=== PATIENT | female | born 1990 | race Caucasian/White ===

== ENCOUNTER 2017-09-13 16:12 | Emergency (ER) | payer MEDICAID ==
--- NOTE | 2017-09-13 16:29 | EDM.PDOC ---
ED HPI GENERAL MEDICAL PROBLEM - General Chief Complaint: Upper Extremity Injury/Pain Stated Complaint: LEFT ELBOW Time Seen by Provider: 09/13/17 16:20 Source of Information: Reports: Patient History Limitations: Reports: No Limitations - History of Present Illness INITIAL COMMENTS - FREE TEXT/NARRATIVE: c/o fall on ice walking dog this AM, dog ran, pt holding leash, pulled to sidewalk, pain in L elbow in antecubital fossa and olecranon, no medial/lateral tender R handed has 3 children, 1 yo at home, 3 others live with GM not working outside house took 3 OTC pain pills at home, not sure whether APAP or ibuprofen - Related Data Allergies Allergy/AdvReac Type Severity Reaction Status Date / Time No Known Allergies Allergy Verified 09/13/17 16:20 Home Meds: Home Meds NK [No Known Home Meds] 09/13/17 [History] Past Medical History - Past Health History Medical/Surgical History: Denies 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: Neurological History: Reports: Migraines Psychiatric History: Reports: Anxiety - Infectious Disease History Infectious Disease History: Reports: Chicken Pox - Past Surgical History HEENT Surgical History: Reports: Tonsillectomy Social & Family History - Family History Family Medical History: Noncontributory - Tobacco Use Smoking Status *Q: Current Every Day Smoker Years of Tobacco use: 15 Packs/Tins Daily: 0.5 Used Tobacco, but Quit: No Second Hand Smoke Exposure: Yes - Caffeine Use Caffeine Use: Reports: Coffee, Energy Drinks, Soda - Recreational Drug Use Recreational Drug Use: No Review of Systems - Review of Systems Review Of Systems: See Below Constitutional: Reports: No Symptoms Eyes: Reports: No Symptoms Ears: Reports: No Symptoms Nose: Reports: No Symptoms Mouth/Throat: Reports: No Symptoms Respiratory: Reports: No Symptoms Cardiovascular: Reports: No Symptoms GI/Abdominal: Reports: No Symptoms Genitourinary: Reports: No Symptoms Musculoskeletal: Reports: Other (L elbow, denies pain elsewhere) Skin: Reports: No Symptoms Neurological: Reports: No Symptoms Psychiatric: Reports: No Symptoms ED EXAM, GENERAL - Physical Exam Exam: See Below Exam Limited By: No Limitations General Appearance: Alert, WD/WN, Mild Distress Extremities: Other (holding L elbow flexed on pillow, allows extension to 180 degrees and flexion to 35 degrees, no ecchymosis, NT at epicondyles and radial head, slight tender at olecranon) Course - Vital Signs Last Recorded V/S: Last Vital Signs Temp 36.1 C 09/13/17 16:22 Pulse 79 09/13/17 16:22 Resp 16 09/13/17 16:22 BP 120/71 09/13/17 16:22 Pulse Ox 100 09/13/17 16:22 - Orders/Labs/Meds Orders: Active Orders 24 hr Category Date Time Status Elbow Min 3V Lt [CR] Stat Exams 09/13/17 16:21 Ordered - Re-Assessments/Exams Free Text/Narrative Re-Assessment/Exam: 09/13/17 16:46 XR neg, need for f/u exam and possible repeat XRs discussed, will try x-ray Departure - Departure Time of Disposition: 16:47 Disposition: Home, Self-Care 01 Condition: Good Clinical Impression: Left elbow contusion - Discharge Information Instructions: Elbow Contusion Referrals: Clayton Chaparro MD [Primary Care Provider] - Forms: ED Department Discharge Additional Instructions: For pain and inflammation and swelling, take ibuprofen 200 mg 3 tabs and acetaminophen 325 mg 2 tabs 4 times a day for 3 days, longer if needed. Use ice for 10 minutes 4 times a day for 2 days. Use Shaan wrap. Limit use of elbow until it feels better. See your doctor in 2-3 days. In some cases of elbow injuries, repeat x-rays are needed. Call your Physician or Return to Emergency Department if: * Your condition worsens in any way. * You develop fever greater than 100.4. * You have vomitting that does not stop with medications. * You have pain that is not controlled with medications. - My Orders Last 24 Hours: My Active Orders 09/13/17 16:21 Elbow Min 3V Lt [CR] Stat - Assessment/Plan Last 24 Hours: My Active Orders 09/13/17 16:21 Elbow Min 3V Lt [CR] Stat
[2017-09-13 16:31] VITALS: BP 120/71
--- NOTE | 2017-09-14 11:35 | CR ---
INDICATION: Fall, pain. LEFT ELBOW: Three views of the left elbow were obtained and revealed no evidence of an acute fracture, dislocation, or other significant bone or joint abnormality. IMPRESSION: Normal left elbow. MTDD
== END 2017-09-13 16:50 | disposition home or self-care (01) ==
LOC: FB.ED 16:12
DX: S50.02XA Contusion of left elbow, initial encounter (principal); F17.210 Nicotine dependence, cigarettes, uncomplicated; W00.0XXA Fall on same level due to ice and snow, initial encounter; Y93.K1 Activity, walking an animal
CPT/HCPCS: 73080-LT; 99283

== ENCOUNTER 2019-04-14 19:58 | Emergency (ER) | payer MEDICAID, OTHER ==
[2019-04-14] MEDS ORDERED: Ketorolac 60 MG/2 ML SDV IM ONE (22:50)
[2019-04-15 01:16] VITALS: BP 131/75; PULSE 85
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
== END 2019-04-15 01:30 | disposition home or self-care (01) ==
LOC: FB.ED 19:58
DX: S16.1XXA Strain of muscle, fascia and tendon at neck level, initial encounter (principal); F17.210 Nicotine dependence, cigarettes, uncomplicated; W22.8XXA Striking against or struck by other objects, initial encounter
CPT/HCPCS: 72050; 96372; 99283; J1885

== ENCOUNTER 2019-11-16 14:25 | Emergency (ER) | payer SELFPAY ==
[2019-11-16 14:44] VITALS: BP 99/52; PULSE 130
[2019-11-16] MEDS ORDERED: Ketorolac 60 MG/2 ML SDV IM ONE (14:48)
[2019-11-16] MEDS ORDERED: Cyclobenzaprine 10 MG Tab PO ONE (14:48)
[2019-11-16] MEDS ORDERED: predniSONE 20 MG Tab PO STA (14:48)
--- NOTE | 2019-11-16 14:50 | EDM.PDOC ---
ED HPI GENERAL MEDICAL PROBLEM - General Chief Complaint: Back Pain or Injury Stated Complaint: BACK PAIN Time Seen by Provider: 11/16/19 14:40 Source of Information: Reports: Patient, Family History Limitations: Reports: No Limitations - History of Present Illness INITIAL COMMENTS - FREE TEXT/NARRATIVE: sudden onset of right side paraspinal low back pain since 3am , non radiaiting , no numbness ortingling down the legs no leg or back inury noted in recent past lower back Pain Score (Numeric/FACES): 5 - Related Data Allergies Allergy/AdvReac Type Severity Reaction Status Date / Time No Known Allergies Allergy Verified 11/16/19 14:42 Home Meds: Home Meds Cyclobenzaprine [Flexeril] 10 mg PO TID PRN #30 tab 11/16/19 [Rx] Ketorolac [Toradol] 10 mg PO Q6H PRN #15 tab 11/16/19 [Rx] Sulfamethoxazole/Trimethoprim [Bactrim Ds Tablet] 1 each PO BID #10 tablet 11/16 [Rx] Past Medical History - Past Health History Medical/Surgical History: Denies 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: Neurological History: Reports: Migraines Psychiatric History: Reports: Anxiety - Infectious Disease History Infectious Disease History: Reports: Chicken Pox - Past Surgical History HEENT Surgical History: Reports: Tonsillectomy Social & Family History - Family History Family Medical History: Noncontributory - Caffeine Use Caffeine Use: Reports: Coffee, Energy Drinks, Soda, Tea - Living Situation & Occupation Living situation: Reports: ED ROS GENERAL - Review of Systems Review Of Systems: See Below Constitutional: Reports: No Symptoms HEENT: Reports: No Symptoms Respiratory: Reports: No Symptoms Cardiovascular: Reports: No Symptoms Endocrine: Reports: No Symptoms Musculoskeletal: Reports: No Symptoms, Back Pain, Muscle Pain Skin: Reports: No Symptoms Neurological: Reports: No Symptoms Psychiatric: Reports: No Symptoms Hematologic/Lymphatic: Reports: No Symptoms Immunologic: Reports: No Symptoms ED EXAM,LOWER BACK PAIN/INJURY - Physical Exam Exam: See Below Exam Limited By: No Limitations General Appearance: Alert, WD/WN, Mild Distress Ears: Normal External Exam Throat/Mouth: Normal Inspection Head: Atraumatic Neck: Supple, Non-Tender Respiratory/Chest: No Respiratory Distress, Lungs Clear, Normal Breath Sounds Cardiovascular: Regular Rate, Rhythm Back Exam: Muscle Spasm, Paraspinal Tenderness (right sided) Extremities: Normal Range of Motion, Non-Tender Neurological: Alert, Normal Mood/Affect Psychiatric: Normal Affect, Normal Mood Skin Exam: Warm Course - Vital Signs Last Recorded V/S: Last Vital Signs Temp 37.1 C 11/16/19 14:26 Pulse 130 H 11/16/19 14:26 Resp 14 11/16/19 14:26 BP 99/52 L 11/16/19 14:26 Pulse Ox 100 11/16/19 14:26 - Orders/Labs/Meds Labs: Laboratory Tests 11/16/19 Range/Units 15:45 Urine Color Yellow (YELLOW) Urine Appearance Cloudy (CLEAR) Urine pH 7.0 H (5.0-6.5) Ur Specific [place] 1.010 (1.010-1.025) Urine Protein 500 H (NEGATIVE) mg/dL Urine Glucose (UA) Normal (NORMAL) mg/dL Urine Ketones 15 H (NEGATIVE) mg/dL Urine Occult Blood Large H (NEGATIVE) Urine Nitrite Positive H (NEGATIVE) Urine Bilirubin Negative (NEGATIVE) Urine Urobilinogen Normal (NEGATIVE) mg/dL Ur Leukocyte Esterase Large H (NEGATIVE) Urine RBC 20-30 H (0-5) Urine WBC >100 H (0-5) Ur Squamous Epith Cells Few H (NS,R,O) Urine Bacteria Many H (NS) Urine Mucus Moderate H (NS) Meds: Medications Discontinued Medications Generic Name Dose Route Start Last Admin Trade Name Freq PRN Reason Stop Dose Admin Cyclobenzaprine HCl 10 mg 11/16/19 14:48 11/16/19 14:56 Flexeril PO 11/16/19 14:49 10 mg ONETIME ONE Administration Ketorolac Tromethamine 60 mg 11/16/19 14:48 11/16/19 14:53 Toradol IM 11/16/19 14:49 60 mg ONETIME ONE Administration Prednisone 40 mg 11/16/19 14:48 11/16/19 14:53 Prednisone PO 11/16/19 14:49 40 mg NOW STA Administration Trimethoprim/Sulfamethoxazole 1 tab 11/16/19 16:08 Septra Ds PO 11/16/19 16:09 ONETIME ONE - Re-Assessments/Exams Free Text/Narrative Re-Assessment/Exam: 11/16/19 15:44 low back pain has improved to 5/101 from 07/13 after toradol flexeril and prednisone will send pt home flexeril and toradol Departure - Departure Time of Disposition: 16:10 Disposition: Home, Self-Care 01 Condition: Fair Clinical Impression: Spasm of lumbar paraspinous muscle, Acute right-sided low back pain, UTI ( urinary tract infection) - Discharge Information *PRESCRIPTION DRUG MONITORING PROGRAM REVIEWED*: Not Applicable *COPY OF PRESCRIPTION DRUG MONITORING REPORT IN PATIENT HERB: Not Applicable Prescriptions: Cyclobenzaprine [Flexeril] 10 mg PO TID PRN #30 tab PRN Reason: Spasms Ketorolac [Toradol] 10 mg PO Q6H PRN #15 tab PRN Reason: Spasms Sulfamethoxazole/Trimethoprim [Bactrim Ds Tablet] 1 each PO BID #10 tablet Instructions: Muscle Cramps and Spasms, [id number], Back Exercises, Easy-to- Read Referrals: Clayton Chaparro MD [Primary Care Provider] - Forms: ED Department Discharge Sepsis Event Note - Evaluation Sepsis Screening Result: No Definite Risk - Focused Exam Vital Signs: Vital Signs Temp Pulse Resp BP Pulse Ox 11/16/19 14:26 37.1 C 130 H 14 99/52 L 100 Date Exam was Performed: 11/16/19 Time Exam was Performed: 16:09
[2019-11-16] MEDS ORDERED: Sulfamethoxazole/Trimethoprim 800-160 MG Tab PO ONE (16:08)
== END 2019-11-16 16:42 | disposition home or self-care (01) ==
LOC: FB.ED 14:25
DX: M62.830 Muscle spasm of back (principal); N39.0 Urinary tract infection, site not specified
CPT/HCPCS: 81001; 87086; 87088; 87186; 96372; 99283; A9270; J1885